=== PATIENT | female | born 1975 | race Caucasian/White ===

== ENCOUNTER → 2020-12-07 | Outpatient (CLI) | payer OTHER ==
[~2020-12-07] MED LIST: CLIN300 PO; HYDACE5 PO; IBUP200 PO; MUPI1NAS; NAPR550 PO; RIFA300 PO; RXNAPNA550 PO; SULTRIDS PO
[2020-12-09 17:05] LABS: CORONAVIRUS (COVID19) CSH-NRL Positive (Negative)
== END ==
LOC: LAB SHORT 16:16 → LAB 16:16
PROVIDERS: Chiropractor
DX: U07.1 COVID-19 (principal); Z91.018 Allergy to other foods
CPT/HCPCS: U0003

== ENCOUNTER 2021-08-02 10:03 | Emergency (ER) | payer OTHER ==
[~2021-08-02] VITALS: Ht 160 cm; Wt 102.1 kg
[2021-08-02] MEDS ORDERED: AZIT250 PO (10:26)
[2021-08-02] MEDS ORDERED: Ventolin/Prove6.7 GM INH (10:26)
[2021-08-02] MEDS ORDERED: Ventolin/Prove6.7 GM (10:26)
[2021-08-02] MEDS ORDERED: PRED20 (10:26)
[2021-08-02] MEDS ORDERED: MONT10T PO (10:27)
[2021-08-02 11:25] LABS: Influenza A, PCR NEGATIVE (NEGATIVE); Influenza B, PCR NEGATIVE (NEGATIVE); Resp Syncytial Virus, PCR NEGATIVE (NEGATIVE); SARS-Cov-2 (COVID-19) PCR, MMC NEGATIVE (NEGATIVE)
[2021-08-02] MEDS ORDERED: IPRAT-ALBUT 0.5-3 ML INH (13:06)
== END 2021-08-02 13:15 | disposition home or self-care (01) ==
LOC: ER 10:03
PROVIDERS: Physician Assistant
DX: J45.901 Unspecified asthma with (acute) exacerbation (principal); Z91.018 Allergy to other foods; Z79.899 Other long term (current) drug therapy; Z79.891 Long term (current) use of opiate analgesic
CPT/HCPCS: 0241U; 36415; 71045; 85379; 93005; 93010; 94640; 99285-25

== ENCOUNTER → 2023-04-09 | Outpatient (CLI) | payer OTHER ==
[~2023-04-09] MED LIST changes: +AZIT250 PO; +IPRAT-ALBUT 0.5-3 ML INH; +MONT10T PO; +PRED20; +Ventolin/Prove6.7 GM; +Ventolin/Prove6.7 GM INH
[2023-04-10 10:16] LABS: Stool Occult Bld Immuno 1 Negative (NEGATIVE)
== END | disposition home or self-care (01) ==
LOC: LAB SHORT 06:35 → LAB 06:35
PROVIDERS: Physician Assistant
DX: Z12.11 Encounter for screening for malignant neoplasm of colon (principal)
CPT/HCPCS: G0328

== ENCOUNTER → 2023-12-04 | Outpatient (CLI) | payer OTHER | LOC: LAB 10:29 → LAB SHORT 10:29 | DX: N39.0 Urinary tract infection, site not specified (principal) | CPT/HCPCS: 87086 ==

== ENCOUNTER → 2024-05-06 | Outpatient (CLI) | payer OTHER ==
[2024-05-06 13:42] LABS: Stool Occult Bld Immuno 1 Negative (NEGATIVE)
== END ==
LOC: LAB 07:15 → LAB SHORT 07:15
PROVIDERS: Physician Assistant
DX: Z12.11 Encounter for screening for malignant neoplasm of colon (principal)
CPT/HCPCS: G0328

== ENCOUNTER → 2024-12-20 | Outpatient (CLI) | payer OTHER | LOC: LAB SHORT 13:58 → LAB 13:58 | DX: R35.0 Frequency of micturition (principal) | CPT/HCPCS: 87077; 87086; 87186 ==